=== PATIENT | male | born 1990 | race Caucasian/White ===

== ENCOUNTER 2018-07-13 15:26 | Emergency (ER) | payer OTHER ==
[2018-07-13] MEDS ORDERED: HYDROcod/ACETAM 5/325 MG TABLET PO STA (16:07)
--- NOTE | 2018-07-13 16:11 | ED Physician Documentation ---
History of Present Illness - Stated complaint Stated Complaint: CALF PX - Chief complaint Chief Complaint: Ext Problem - History obtained from History obtained from: Patient, Family - History of Present Illness Timing: Today, How many hours ago (1) Pain level max: 8 Pain level now: 6 Quality: pain - Additonal information Additional information: Patient is a 27-year-old male who presents to the emergency department after playing basketball today and feeling a sharp pain in his calf and a pop. Now difficulty walking. Better with rest. Worse with movement. Review of Systems Constitutional: denies: Fever, Chills Respiratory: denies: Cough GI: denies: Nausea, Vomiting, Diarrhea Skin: denies: Rash Musculoskeletal: denies: Neck pain, Back pain Neurologic: denies: Focal weakness, Numbness, Headache, Head injury PD PAST MEDICAL HISTORY - Past Medical History Past Medical History: No Cardiovascular: None Respiratory: None Endocrine/Autoimmune: None GI: None : None HEENT: None Psych: None Musculoskeletal: None Derm: None - Past Surgical History Past Surgical History: No - Present Medications Home Medications: Ambulatory Orders Medication Instructions Recorded Confirmed EPINEPHrine [Epipen] 0.3 mg IM ONCE PRN #1 syringe 09/23/14 diphenhydrAMINE [Benadryl] 25 mg PO Q6H #20 capsule 09/23/14 predniSONE [Deltasone] 60 mg PO DAILY 3 Days tablet 09/23/14 Hydrocodone/Acetaminophen 1 - 2 each PO Q6H PRN #14 tablet 07/13/18 [Hydrocodon-Acetaminophen 5-325] - Allergies Allergies/Adverse Reactions: Allergies Allergy/AdvReac Type Severity Reaction Status Date / Time shellfish derived Allergy Anaphylaxis Verified 07/13/18 15:37 - Social History Does the pt smoke?: No Smoking Status: Never smoker Does the pt drink ETOH?: Yes Does the pt have substance abuse?: No - Immunizations Immunizations are current?: Yes - POLST Patient has POLST: No PD ED PE NORMAL - Vitals Vital signs reviewed: Yes - General General: Alert and oriented X 3, No acute distress - HEENT HEENT: Moist mucous membranes - Derm Derm: Warm and dry - Extremities Extremities: No deformity, Other (L LE - swelling to posterior calf. Muniz's test results in downward flexion of the foot. NVI. Compartments are soft) - Neuro Neuro: Alert and oriented X 3 - Psych Psych: Normal mood, Normal affect Results - Vitals Vitals: Vital Signs - 24 hr 07/13/18 07/13/18 15:34 16:33 Temperature 36.4 C L Heart Rate 79 73 Respiratory 16 18 Rate Blood Pressure 114/65 102/51 L O2 Saturation 100 99 Oxygen O2 Source Room air PD MEDICAL DECISION MAKING - ED course Complexity details: re-evaluated patient, considered differential, d/w patient, d/w family ED course: Patient is a 27-year-old male who presents to the emergency department with what appears to be a calf strain and hematoma. Achilles tendon is intact on exam. Placed in a walking boot and will utilize crutches as well at home. We will have him follow-up with his doctor for further evaluation. Compartments are soft. Neurovascularly intact. Patient and family counseled regarding signs and symptoms for which I believe and urgent re-evaluation would be necessary. Patient with good understanding of and agreement to plan and is comfortable going home at this time This document was made in part using voice recognition software. While efforts are made to proofread this document, sound alike and grammatical errors may occur. - Sepsis Event Vital Signs: Vital Signs - 24 hr 07/13/18 07/13/18 15:34 16:33 Temperature 36.4 C L Heart Rate 79 73 Respiratory 16 18 Rate Blood Pressure 114/65 102/51 L O2 Saturation 100 99 Oxygen O2 Source Room air Departure - Departure Disposition: 01 Home, Self Care Clinical Impression: Strain of calf muscle Qualifiers: Encounter type: initial encounter Laterality: left Qualified Code(s): S86.812A - Strain of other muscle(s) and tendon(s) at lower leg level, left leg, initial encounter Condition: Good Instructions: ED Strain Muscle Ext Follow-Up: your,doctor in 1 week [Other] Prescriptions: Hydrocodone/Acetaminophen [Hydrocodon-Acetaminophen 5-325] 1 - 2 each PO Q6H PRN #14 tablet PRN Reason: pain Comments: Wear the boot until you see your doctor. Return if you worsen. You should follow-up with your doctor for repeat evaluation in approximately 1 week, This will allow time for the swelling to go down. Do not drink alcohol or drive while on narcotic pain medicine. Note that many narcotic pain relievers also contain tylenol/acetaminophen. Please ensure that your total dose of acetaminophen from all sources does not exceed 3 grams (3000mg) per day. You may constipated on this medication, take a stool softener such as "Colace" twice a day while you are on it. Also recommend a [id number] laxative such as senna or MiraLAX any day that you do not have a bowel movement. If you received narcotic pain medication in the emergency department, do not drive or operate machinery for the next 24 hours. Forms: Activity restrictions Discharge Date/Time: 07/13/18 16:35
[2018-07-13] MEDS ORDERED: ONDANSETRON ODT 4 MG TABLET TL STA (16:13)
[2018-07-13 16:35] VITALS: BP 102/51
== END 2018-07-13 16:35 | disposition home or self-care (01) ==
LOC: ED 15:26
DX: S86.812A Strain of other muscle(s) and tendon(s) at lower leg level, left leg, initial encounter (principal); X50.9XXA Other and unspecified overexertion or strenuous movements or postures, initial encounter; Y93.67 Activity, basketball
CPT/HCPCS: 99283; A9270; Q0162

== ENCOUNTER 2019-02-02 12:24 | Emergency (ER) | payer OTHER ==
[2019-02-02 12:39] VITALS: BP 143/89
--- NOTE | 2019-02-02 12:43 | ED Physician Documentation ---
PD HPI URI - Stated complaint Stated Complaint: FLU LIKE SX - Chief complaint Chief Complaint: General - History obtained from History obtained from: Patient - History of Present Illness Timing - onset: How many days ago (2-3 days of cough, fever, malaise, and some dyspnea.) Timing duration: Days (2-3) Timing details: Abrupt onset, Still present Associated symptoms: Fever, Nasal congestion, Swollen nodes, Productive cough, Chest pain (with coughing), Dyspnea. No: Sore throat Contributing factors: No: Sick contact, COPD / asthma Similar symptoms before: Has not had sx before Recently seen: Not recently seen Review of Systems Constitutional: reports: Fever, Chills, Myalgias Nose: reports: Congestion Respiratory: reports: Dyspnea, Cough, Wheezing GI: reports: Nausea. denies: Vomiting, Diarrhea Skin: denies: Rash PD PAST MEDICAL HISTORY - Past Medical History Cardiovascular: None Respiratory: None Endocrine/Autoimmune: None GI: None : None HEENT: None Psych: None Musculoskeletal: None Derm: None - Past Surgical History Past Surgical History: No - Present Medications Home Medications: Ambulatory Orders Medication Instructions Recorded Confirmed EPINEPHrine [Epipen] 0.3 mg IM ONCE PRN #1 syringe 09/23/14 diphenhydrAMINE [Benadryl] 25 mg PO Q6H #20 capsule 09/23/14 predniSONE [Deltasone] 60 mg PO DAILY 3 Days tablet 09/23/14 Hydrocodone/Acetaminophen 1 - 2 each PO Q6H PRN #14 tablet 07/13/18 [Hydrocodon-Acetaminophen 5-325] Benzonatate [Tessalon Perle] 100 mg PO TID PRN #25 capsule 02/02/19 Dexamethasone [Decadron] 4 mg PO DAILY #5 tablet 02/02/19 Doxycycline Hyclate 100 mg PO BID #14 capsule 02/02/19 Ondansetron Odt [Zofran] 4 mg TL Q6H PRN #15 tablet 02/02/19 Oseltamivir [Tamiflu] 75 mg PO BID #10 capsule 02/02/19 - Allergies Allergies/Adverse Reactions: Allergies Allergy/AdvReac Type Severity Reaction Status Date / Time shellfish derived Allergy Anaphylaxis Verified 02/02/19 12:39 - Social History Does the pt smoke?: No Smoking Status: Never smoker Does the pt drink ETOH?: Yes Does the pt have substance abuse?: No - Immunizations Immunizations are current?: Yes - POLST Patient has POLST: No PD ED PE NORMAL - Vitals Vital signs reviewed: Yes - General General: Alert and oriented X 3, No acute distress, Well developed/nourished - HEENT HEENT: Ears normal, Pharynx benign - Neck Neck: Supple, no meningeal sign, No adenopathy - Cardiac Cardiac: RRR, No murmur - Respiratory Respiratory: Clear bilaterally - Abdomen Abdomen: Soft, Non tender - Derm Derm: Normal color, Warm and dry - Neuro Neuro: Alert and oriented X 3, No motor deficit, Normal speech Results - Vitals Vitals: Oxygen O2 Source Room air - Labs Labs: Laboratory Tests 02/02/19 12:43 Influenza A (Rapid) Negative Influenza B (Rapid) Negative PD MEDICAL DECISION MAKING - ED course Complexity details: reviewed results, considered differential (has flu like symptoms but with primary cough and neg flu test. So consider bronchitis bacterial instead. ), d/w patient Departure - Departure Disposition: 01 Home, Self Care Clinical Impression: Flu-like symptoms Acute bronchitis Qualifiers: Bronchitis organism: unspecified organism Qualified Code(s): J20.9 - Acute bronchitis, unspecified Condition: Stable Record reviewed to determine appropriate education?: Yes Instructions: ED Upper Resp Infec Abx Tx Follow-Up: YAEL Brooks [Provider Group] Prescriptions: Benzonatate [Tessalon Perle] 100 mg PO TID PRN #25 capsule PRN Reason: Cough Dexamethasone [Decadron] 4 mg PO DAILY #5 tablet Doxycycline Hyclate 100 mg PO BID #14 capsule Ondansetron Odt [Zofran] 4 mg TL Q6H PRN #15 tablet PRN Reason: Nausea / Vomiting Oseltamivir [Tamiflu] 75 mg PO BID #10 capsule Comments: Your symptoms could be consistent with upper respiratory infection/just cold and now you have the flu in addition though your flu test is negative. Alternatively upper respiratory infection can transform into a bacterial infection such as bronchitis or pneumonia. Your chest x-ray is normal so not pneumonia but still consider bronchitis bacterial cause. As such we can treat with some anti-inflammatories Decadron daily for the next 5 days. Add ondansetron for nausea and Tessalon for cough. These are symptomatic medicines. Additionally we can go with doxycycline antibiotic twice daily for a week for potential bacterial infection. You could add Tamiflu for potential treatment of influenza as this does sound like it. The improvement with that is mild so if you do feel like you are nauseous or such with it (or take it separately from the others) then just discontinue the Tamiflu. Forms: Activity restrictions Discharge Date/Time: 02/02/19 14:45
[2019-02-02] MEDS ORDERED: BENZONATATE 100 MG CAPSULE PO STA (13:20)
[2019-02-02] MEDS ORDERED: ACETAMINOPHEN 325 MG TABLET PO STA (13:20)
[2019-02-02] MEDS ORDERED: DEXAMETHASONE 10 MG/ML VIAL PO STA (13:20)
[2019-02-02] MEDS ORDERED: ONDANSETRON ODT 4 MG TABLET TL STA (13:20)
--- NOTE | 2019-02-02 14:27 | XRAY Report ---
Reason: cough and fever Procedure Date: 02/02/2019 Accession Number: [id number] / [id number] Procedure: XR - Chest 2 View X-Ray CPT Code: 35311 FULL RESULT: EXAM: CHEST RADIOGRAPHY EXAM DATE: 02/02/2019 02:02 PM. CLINICAL HISTORY: Cough and fever. COMPARISON: None. TECHNIQUE: 2 views. FINDINGS: Lungs/Pleura: No focal opacities evident. No pleural effusion. No pneumothorax. Normal volumes. Mediastinum: Heart and mediastinal contours are unremarkable. Other: None. IMPRESSION: Normal 2-view chest radiography. [facility]
== END 2019-02-02 14:45 | disposition home or self-care (01) ==
LOC: ED 12:24
DX: J20.9 Acute bronchitis, unspecified (principal)
CPT/HCPCS: 71046; 87275; 87276; 99283; A9270; Q0162

== ENCOUNTER 2020-02-05 16:21 | Emergency (ER) | payer OTHER ==
[2020-02-05 16:29] VITALS: BP 140/82
[2020-02-05 16:44] LABS: RAPID STREP SCREEN Negative (Negative)
[2020-02-05] MEDS ORDERED: DEXAMETHASONE 10 MG/ML VIAL PO STA (17:07)
[2020-02-05] MEDS ORDERED: CHERRY SYRUP 10 ML UDC PO ONE (17:07)
--- NOTE | 2020-02-05 17:15 | ED Physician Documentation ---
History of Present Illness - Stated complaint Stated Complaint: SORE,FEVER,COUGH - Chief complaint Chief Complaint: Heent - History obtained from History obtained from: Patient - History of Present Illness Timing: Yesterday Pain level max: 4 Pain level now: 3 - Additonal information Additional information: 29-year-old male presents to the emergency department for sore throat and fever since last night. Nothing makes it better. Worse with swallowing. No cough. No abdominal pain. No nausea or vomiting. Review of Systems Constitutional: reports: Fever Respiratory: denies: Cough GI: denies: Vomiting, Constipation, Diarrhea Skin: denies: Rash Musculoskeletal: denies: Neck pain, Back pain Neurologic: denies: Headache PD PAST MEDICAL HISTORY - Past Medical History Past Medical History: No Cardiovascular: None Respiratory: None Neuro: None Endocrine/Autoimmune: None GI: None : None HEENT: None Psych: None Musculoskeletal: None Derm: None - Past Surgical History Past Surgical History: No - Present Medications Home Medications: Ambulatory Orders Medication Instructions Recorded Confirmed EPINEPHrine [Epipen] 0.3 mg IM ONCE PRN #1 syringe 09/23/14 diphenhydrAMINE [Benadryl] 25 mg PO Q6H #20 capsule 09/23/14 predniSONE [Deltasone] 60 mg PO DAILY 3 Days tablet 09/23/14 Hydrocodone/Acetaminophen 1 - 2 each PO Q6H PRN #14 tablet 07/13/18 [Hydrocodon-Acetaminophen 5-325] Benzonatate [Tessalon Perle] 100 mg PO TID PRN #25 capsule 02/02/19 Doxycycline Hyclate 100 mg PO BID #14 capsule 02/02/19 Ondansetron Odt [Zofran] 4 mg TL Q6H PRN #15 tablet 02/02/19 Oseltamivir [Tamiflu] 75 mg PO BID #10 capsule 02/02/19 dexAMETHasone [Decadron] 4 mg PO DAILY #5 tablet 02/02/19 Penicillin V Potassium 500 mg PO Q6HR #40 tablet 02/05/20 - Allergies Allergies/Adverse Reactions: Allergies Allergy/AdvReac Type Severity Reaction Status Date / Time shellfish derived Allergy Anaphylaxis Verified 02/05/20 16:28 - Social History Does the pt smoke?: No Smoking Status: Never smoker Does the pt drink ETOH?: Yes Does the pt have substance abuse?: No - Immunizations Immunizations are current?: Yes - POLST Patient has POLST: No PD ED PE NORMAL - Vitals Vital signs reviewed: Yes - General General: Alert and oriented X 3, No acute distress, Well developed/nourished - HEENT HEENT: PERRL, Ears normal, Moist mucous membranes, Other (Posterior pharyngeal erythema with tonsillar exudates. Uvula midline. Normal phonation. No trismus.) - Neck Neck: Supple, no meningeal sign, Other (Shotty anterior lymphadenopathy) - Cardiac Cardiac: RRR, Strong equal pulses - Respiratory Respiratory: No respiratory distress, Clear bilaterally - Abdomen Abdomen: Soft, Non tender, Non distended - Derm Derm: Warm and dry, No rash - Extremities Extremities: No edema - Neuro Neuro: Alert and oriented X 3 - Psych Psych: Normal mood, Normal affect Results - Vitals Vitals: Vital Signs - 24 hr 02/05/20 16:24 Temperature 37.4 C Heart Rate 110 H Respiratory 17 Rate Blood Pressure 140/82 H O2 Saturation 100 Oxygen O2 Source Room air - Labs Labs: Laboratory Tests 02/05/20 16:30 Group A Strep Rapid Negative PD MEDICAL DECISION MAKING - ED course Complexity details: considered differential, d/w patient ED course: Patient with what appears to be tonsillitis/pharyngitis. Rapid strep is nega tive, but will place on antibiotics's exam is consistent with tonsillitis. Patient does not have any evidence of peritonsillar abscess. Patient counseled regarding signs and symptoms for which I believe and urgent re-evaluation would be necessary. Patient with good understanding of and agreement to plan and is comfortable going home at this time This document was made in part using voice recognition software. While efforts are made to proofread this document, sound alike and grammatical errors may occur. Departure - Departure Disposition: 01 Home, Self Care Clinical Impression: Tonsillitis Condition: Good Instructions: ED Strep Pharyngitis Conf Follow-Up: your,doctor in 1 week if not better [Other] Prescriptions: Penicillin V Potassium 500 mg PO Q6HR #40 tablet Comments: Drink plenty of fluids. Return if you worsen. Take all antibiotics until gone.
== END 2020-02-05 17:29 | disposition home or self-care (01) ==
LOC: ED 16:21
DX: J03.90 Acute tonsillitis, unspecified (principal)
CPT/HCPCS: 87070; 87430; 99283; 99284; A9270